=== PATIENT | male | born 1985 | race Caucasian/White ===

== ENCOUNTER 2019-11-14 19:01 | Emergency (ER) | payer OTHER ==
[~2019-11-14] VITALS: Ht 182.9 cm; Wt 127.0 kg
[2019-11-14 19:41] VITALS: BP_SYST 151
--- NOTE | 2019-11-14 19:43 | NUR ---
Patient triaged and placed in waiting room. VS checked and patient appears in no acute distress at this time. Accompanied by self , awaiting available bed, and MD notified of need for MSE.
--- NOTE | 2019-11-14 22:42 | NUR ---
Patient to ER bed 06 for evaluation. Side rails up.
--- NOTE | 2019-11-14 22:43 | NUR ---
Pt AAOx4 ambulated into ED c/o 02/26 pain to R jaw pain r/t tooth infection x 4 days. Pt currently taking amoxicillin and ibuprofen with no relief. Pt was seen by dentist and validation scientist who referred pt to ED for IV or IM abx. No other injuries/complaints per pt/noted. Will continue to monitor.
--- NOTE | 2019-11-14 23:21 | NUR ---
ER Dr. Ames at bedside examining patient.
[2019-11-14] MEDS ORDERED: PENICILLIN G BENZATHINE 1.2 MMU/2 ML SYR IM ONE (23:30)
[2019-11-14 23:43] VITALS: BP_SYST 122
--- NOTE | 2019-11-14 23:47 | NUR ---
Patient given written and verbal discharge instructions and verbalizes understanding. ER MD Ames discussed with patient the results and treatment provided. Patient in stable condition. ID arm band removed. No Rx given. Patient educated on pain management and to follow up with PMD. Pain Scale 0. Opportunity for questions provided and answered. Medication side effect fact sheet provided.
== END 2019-11-14 23:47 | disposition home or self-care (01) ==
LOC: SED 19:01
DX: K04.7 Periapical abscess without sinus (principal); I10 Essential (primary) hypertension
CPT/HCPCS: 96372; 99283; J0561

== ENCOUNTER 2020-02-07 03:42 | Emergency (ER) | payer MEDICAID, OTHER ==
[~2020-02-07] VITALS: Ht 182.9 cm; Wt 127.0 kg
[2020-02-07 04:04] VITALS: BP_SYST 132
--- NOTE | 2020-02-07 04:04 | NUR ---
Patient to ER bed 7 to gown for evaluation. Side rails up.
--- NOTE | 2020-02-07 04:05 | NUR ---
Patient came to ER with his family. C/O left upper rib pain x 4 days. Patient states "left upper rib pain for 4 days, pain increase when inspiration, took Motrin 1000 mg , no relief." A/O, X4, left upper rib pain, pain rate 9/10, no SOB, no respiratory distress, vss.
--- NOTE | 2020-02-07 04:08 | NUR ---
ER Dr. Ames at bedside examining patient.
--- NOTE | 2020-02-07 04:28 | NUR ---
Patient transported to radiology via wheelchair, accompanied by Non Food Receiving Clerk.
--- NOTE | 2020-02-07 04:35 | NUR ---
Returned from radiology, back to [facility].
[2020-02-07 05:14] VITALS: BP_SYST 132
--- NOTE | 2020-02-07 05:14 | NUR ---
Patient given written and verbal discharge instructions and verbalizes understanding. ER MD discussed with patient the results and treatment provided. Patient in stable condition. ID arm band removed. Rx of [place] given. Patient educated on pain management and to follow up with PMD. Pain Scale 4/10. Opportunity for questions provided and answered. Medication side effect fact sheet provided.
[2020-02-07] MEDS ORDERED: HYDROcodone/ACETAMIN 7.5-325 MG TAB PO ONE (05:15)
== END 2020-02-07 05:14 | disposition home or self-care (01) ==
LOC: SED 03:42
DX: R07.89 Other chest pain (principal); R07.81 Pleurodynia
CPT/HCPCS: 71100; 99283